=== PATIENT | female | born 1995 ===

== ENCOUNTER → 2024-06-12 11:14 | Outpatient (REF) | payer SELFPAY ==
[2024-06-12 12:55] LABS: Hepatitis B Surface Antigen Negative (Negative)
[2024-06-12 13:04] LABS: HIV Combo Negative (Negative)
[2024-06-12 13:13] LABS: Hepatitis C Antibody Negative (Negative)
[2024-06-12 14:16] LABS: Hepatitis B Surface Antibody Indeterminate
== END ==
LOC: CLAB 11:14
PROVIDERS: ATTENDING PHYSICIAN Surgery
DX: Z77.21 Contact with and (suspected) exposure to potentially hazardous body fluids (principal)
CPT/HCPCS: 86706; 86803; 87340; 87389